=== PATIENT | female | born 1935 | race Two or more races ===

== ENCOUNTER → 2016-11-30 | Outpatient (CLI) | payer MEDICARE ==
[~2016-11-30] MED LIST: ASPI-556 PO; CARV3.1262 PO; CLOP75 PO; HYDR200T4 PO; LISI-661 PO; MECL-111 PO; METF500T PO; NITR.4 SL; OMEP20CA10 PO; PRAV20TA PO; TRAM50TA4 PO; TRAM50TA50 PO
== END | disposition home or self-care (01) ==
LOC: RADPV 11:14
PROVIDERS: ATTEND Family Medicine
DX: R05 Cough (principal)
CPT/HCPCS: 71020

== ENCOUNTER → 2017-04-25 | Outpatient (CLI) | payer MEDICARE ==
[~2017-04-25] MED LIST changes: -TRAM50TA4 PO; -TRAM50TA50 PO; +VITAD1000 PO
== END | disposition home or self-care (01) ==
LOC: RADPV 08:49
PROVIDERS: ATTEND Family Medicine
DX: M17.12 Unilateral primary osteoarthritis, left knee (principal); M25.762 Osteophyte, left knee; M25.462 Effusion, left knee